=== PATIENT | female | born 1955 | race Caucasian/White ===

== ENCOUNTER → 2022-12-05 12:55 | Outpatient (CLI) | payer MEDICARE, SELFPAY ==
--- NOTE | 2022-12-05 12:57 | DI.RAD.S_ITS ---
PROCEDURE: XR HAND RT MIN 3V INDICATIONS: Pain at anterior CMC of right thumb TECHNIQUE: 3 views of the hand acquired. COMPARISON: None. FINDINGS: Bones: No acute fractures or dislocations. 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 Moderate degenerative changes are seen at the 1st carpometacarpal joint and there are mild degenerative changes at the triscaphe joint and in the interphalangeal joints of the fingers. Carpal bones are normally aligned. No suspicious bony lesions. Soft tissues: No suspicious soft tissue calcifications. Soft tissue edema is seen at the radial aspect of the wrist. IMPRESSION: 1. No acute osseous abnormality. If clinical suspicion and/or symptoms persist, additional imaging with repeat plain films, or advanced imaging (e.g. CT, MRI) may be helpful for further assessment. 2. Mild volar subluxation at the 3rd metacarpophalangeal joint is most likely chronic, but clinical correlation is recommended. 3. Mild to moderate osteoarthrosis. Approved by: Moisés Rosenthal M.D. on 12/05/2022 at 16:34
--- NOTE | 2022-12-05 12:57 | DI.RAD.S_ITS ---
PROCEDURE: XR KNEE LT 3V INDICATIONS: Point tenderness to anterior left patella TECHNIQUE: 3 views of the knee were acquired. COMPARISON: None. FINDINGS: Bones: No acute fractures or dislocations. No suspicious bony lesions. Marginal osteophytes are seen at the medial and lateral femorotibial compartments. There is moderate joint space narrowing marginal osteophyte formation and subchondral sclerosis at the patellofemoral compartment. Soft tissues: Small joint effusion. No suspicious soft tissue calcifications. IMPRESSION: 1. No acute osseous abnormality. If clinical suspicion and/or symptoms persist, additional imaging with repeat plain films, or advanced imaging (e.g. CT, MRI) may be helpful for further assessment. 2. Small joint effusion. 3. Moderate patellofemoral osteoarthrosis. Approved by: Moisés Rosenthal M.D. on 12/05/2022 at 16:31
== END ==
PROVIDERS: Referring Provider Physician Assistant; Visit Provider Physician Assistant
DX: M17.12 Unilateral primary osteoarthritis, left knee (principal); S63.212A Subluxation of metacarpophalangeal joint of right middle finger, initial encounter; M19.041 Primary osteoarthritis, right hand; M25.462 Effusion, left knee; M79.641 Pain in right hand; M25.562 Pain in left knee; V18.2XXA Unspecified pedal cyclist injured in noncollision transport accident in nontraffic accident, initial encounter
CPT/HCPCS: 73130; 73562